=== PATIENT | female | born 2000 | race Caucasian/White ===

== ENCOUNTER 2019-01-11 19:43 | Emergency (ER) | payer MEDICAID ==
[~2019-01-11] VITALS: Ht 160 cm; Wt 51.0 kg
[~2019-01-11 19:43] MED LIST: ONDA8TAB13 PO
--- NOTE | 2019-01-11 20:09 | NUR ---
pt slept wrong last night on her neck r/t new apartment and new pillows, couldn't get comfortable. She has a muscle spasm/tension to her left side of her neck. RN gently massaged it and placed an ice pack to the area.
[2019-01-11] MEDS ORDERED: diphenhydrAMINE 50 mg/ml inj IV ONE (21:10)
[2019-01-11] MEDS ORDERED: normal saline 1000ml 1,000 ML IV ONE (21:10)
[2019-01-11] MEDS ORDERED: acetaminophen 325mg tablet PO ONE (21:10)
[2019-01-11] MEDS ORDERED: proCHLORperazine 10 MG/2 ml inj IV ONE (21:10)
[2019-01-11 22:15] VITALS: BP 110/63
== END 2019-01-11 22:17 | disposition home or self-care (01) ==
LOC: ER 19:44
DX: O26.891 Other specified pregnancy related conditions, first trimester (principal); R51 Headache; R42 Dizziness and giddiness; E86.0 Dehydration; O21.9 Vomiting of pregnancy, unspecified; Z91.040 Latex allergy status; Z79.899 Other long term (current) drug therapy; Z3A.11 11 weeks gestation of pregnancy
CPT/HCPCS: 96361; 96374; 96375; 99283; J0780; J1200; J7030